=== PATIENT | female | born 1955 | race Two or more races ===

== ENCOUNTER 2022-03-26 19:40 | Emergency (ER) | payer SELFPAY ==
[~2022-03-26] VITALS: Ht 152.4 cm; Wt 62.1 kg
[2022-03-26 20:24] LABS: BASO % 0.2 % (0.0-1.0); EOS % 0.2 % (0.0-3.0); HEMOGLOBIN 13.2 g/dl (12.0-15.5); LYMPH # 1.9 10^3/uL (1.5-5.0); LYMPH % 30.4 % (24.0-44.0); MEAN CORPUSCULAR HEMOGLOBIN 28.4 pg (27.0-33.0); MEAN CORPUSCULAR HGB CONC 33.8 g/dl (32.0-36.5); MEAN CORPUSCULAR VOLUME 83.9 fl (80.0-96.0); MONO # 0.3 10^3/uL (0.0-0.8); MONO % 4.4 % (2.0-8.0); NEUTROPHILS # 4.1 10^3/uL (1.5-8.5); NEUTROPHILS % 64.3 % (36.0-66.0); PLATELET COUNT, AUTOMATED 337 10^3/uL (150-450); RED BLOOD COUNT 4.65 10^6/uL (4.00-5.40); WHITE BLOOD COUNT 6.4 10^3/uL (4.0-10.0)
[2022-03-26 21:11] LABS: CALCIUM LEVEL 9.5 MG/DL (8.8-10.2); CREATININE FOR GFR 1.08 MG/DL (0.55-1.30); GLOMERULAR FILTRATION RATE 53.9 (>45); POTASSIUM SERUM 4.6 MEQ/L (3.5-5.1)
[2022-03-26 21:14] LABS: CK-MB VALUE MASS 2.9 NG/ML (<3.6); MB/CK RELATIVE INDEX 3.62 (< OR =4)
[2022-03-26 21:42] VITALS: BP 190/108
[2022-03-26] MEDS ORDERED: amLODIPine 5 MG TAB PO ONE (21:55)
[2022-03-26] MEDS ORDERED: AMLO1TAB24 PO (22:03)
== END 2022-03-26 22:49 | disposition home or self-care (01) ==
LOC: M ED 19:40
DX: I16.0 Hypertensive urgency (principal); E11.9 Type 2 diabetes mellitus without complications